=== PATIENT | male | born 1995 | race Caucasian/White ===

== ENCOUNTER 2019-10-12 11:24 | Inpatient (IN) | payer SELFPAY ==
[2019-10-12 11:26] VITALS: BP 158/98; PULSE 111; RESP 18; TEMP 37.1; O2SAT 97; BMI 30.8
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
[2019-10-12] MEDS: LORazepam 1 mg Tablet PO (11:36)
[2019-10-12 12:04] VITALS: BP 158/98; PULSE 100; RESP 16; TEMP 36.8
[2019-10-12 12:06] VITALS: BP 157/111; PULSE 103; RESP 18; TEMP 37.2; O2SAT 98
[2019-10-12] MEDS: hyDROXYzine 25 mg Capsule 50 MG PO ×2 (12:18→21:27)
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
[2019-10-12] MEDS: OLANZapine 5 mg ODT PO (21:33)
[2019-10-12 22:00] VITALS: BP 180/78; PULSE 97; RESP 18; TEMP 36.8; O2SAT 96
--- NOTE | 2019-10-12 23:47 | PC.NURSE ---
pt given PRN ttrazodone and vistaril at HS per request.
[2019-10-13 06:00] VITALS: BP 127/82; PULSE 68; RESP 20; TEMP 37; O2SAT 97
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
--- NOTE | 2019-10-13 09:36 | P.DS_ITS ---
Diagnoses at Discharge Discharge Diagnosis (1) Suicidal ideation: Status: Acute Problem details: Now that the patient has slept it off he has no suicidal or homicidal ideation, plan or intent (2) Adjustment disorder with anxious mood in remission: Status: Acute Problem details: The patient's crisis is receding rapidly. Reason for Visit Reason for Visit: SI/DEPRESSION Hospital Course Hospital Course As soon as the patient slept it off he morphed into a perfectly normal 24-year-old young adult. He has no suicidal or homicidal ideation, plan or intent. He is of normal mental status. Discharge Summary The patient sobered up rapidly and I have consulted with our senior program planner to get him a ride back to [place], whence he came. He is to be referred for counseling resources, as he is not clinically depressed. Involuntary Hold Information 96 Hour Hold: 96 Hour Involuntary Admission: No Mental Status Exam MSE Comments: This is a 24-year-old male who looks his age. He is clean, neat and of good body habitus. Mood is calm although a bit sheepish in that he feels stupid now that he has slept it off. Thought processes are integrated and free of any racing, blocking or looseness of association. There is no evidence of psychosis, such as but not limited to hallucinations, delusions and ideas of reference. Speech is of normal rate and volume, without dysarthria, aprosody or pressure. Cognitive functions are completely intact and his insight and judgment are robust. He denies suicidal or homicidal ideation, plan or intent. Physical Exam Narrative: EXAM NARRATIVE: Const: COMMON NORMALS: no acute distress, patient oriented x3, no limitations, healthy appearing and well nourished GENERAL APPEARANCE: cooperative and well developed HENMT: COMMON NORMALS: normocephalic, atraumatic, external ears normal, EAC's normal and Normal external nose present HEAD & SCALP: normal to inspection, normocephalic and atraumatic FACE & SINUS: normal facial exam and face symmetric NOSE: Normal external nose present and Normal nares present EXT ERNAL EAR: Yes external ears normal EXTERNAL AUDITORY CANAL: EAC's normal MOUTH: Normal oral and palatal mucosa present, lip normal and tongue normal Eye: COMMON NORMALS: Equal, round and reactive pupils present and conjunctivae normal GENERAL EYE: appearance normal, both eyes and all related structures ALIGNMENT: Yes alignment normal PERIORBITAL: periorbital findings normal EYELID: eyelids normal CONJUNCTIVA: Yes conjunctivae normal SCLERA: sclerae normal PUPIL: Yes Equal, round and reactive pupils present Neck/C-Spine: COMMON NORMALS: full ROM, no lymphadenopathy, supple, no meni ngeal signs and no JVD GENERAL: Yes normal visual inspection and Yes trachea midline Chest: COMMONS NORMALS: normal inspection of the chest and normal palpation of entire chest wall Resp: COMMON NORMALS: normal respiratory effort, No retractions and No use of accessory muscles EFFORT & INSPECTION: Yes able to speak in complete sentences and Yes symmetric chest movement AUSCULTATION: no crackles, no rales, no rhonchi and no wheezes Cardio: COMMON NORMALS: no JVD, regular rate, regular rhythm, S1 normal heart sound present and S2 normal heart sound present RATE: regular rate RHYTHM: regular rhythm HEART SOUNDS: S1 normal heart sound present, S2 normal heart sound present, no click, no gallops, no murmurs, no rubs and abnormal split S2 GI: COMMON NORMALS: Soft to palpation and No hepatosplenomegaly present PALPATION: Yes Soft to palpation, No Tenderness to palpation present (GI), No Guarding due to palpation present (GI), No Rigid due to palpation, Yes No hepatosplenomegaly present, No Hernia present, No Palpable mass present and No Pulsatile mass present : COMMON NORMALS: Yes no CVA tenderness BLADDER/KIDNEY EXAM: Yes no CVA tenderness EXTERNAL FEMALE EXAM: No Hernia present Back/Pelvis: COMMON NORMALS: no CVA tenderness, thoracic and lumbar spine normal to inspection, no thoracic nor lumbar tenderness and thoraco-lumbar ROM normal Extremity: COMMON NORMALS: normal to inspection, full ROM, capillary refill normal, no joint enlargement, no clubbing, cyanosis or edema and no calf tenderness Neuro: COMMON NORMALS: patient oriented x3, CN's II-XII intact bilaterally, moves all extremities, no focal motor deficits and no sensory deficits noted MENINGEAL SIGNS: Yes no meningeal signs SPEECH: speech normal Psych: See mental status. Skin: COMMON NORMALS: no rashes or lesions noted, turgor normal, no jaundice, no petechiae and no mottling GENERAL SKIN EXAM: no rashes or lesions noted and turgor normal Discharge Data Data Completed and Pending: Pending at discharge Category Date Time Status Drug Screen, Urin e Stat Lab 10/12/19 11:37 Ordered Vitals: Last Vital Signs Temp 98.6 F 10/13/19 06:00 Pulse 68 10/13/19 06:00 Resp 20 H 10/13/19 06:00 BP 127/82 10/13/19 06:00 Pulse Ox 97 10/13/19 06:00 Discharge Plan Discharge Patient Disposition: Home Condition: Stable Prescriptions: Discontinued ibuprofen 200 mg Tablet 800 mg PO PRN RF: 0 Discharge Orders: Discharge Order (Routine); Ordered 10/13/19 Ordered By: Jacinto Casey Discharge Diet: Usual diet Discharge Activity: Resume usual activity Discharge Attestations NPU Time Spent in Discharge Care*: greater than 30 min Specific Discharge Activities: Specific discharge activities: educating patient, discussing with returned case inspector/social workers/dc planners, documenting/other paperwork and evaluating patient/reviewing data Status at Discharge: Cognitive status at discharge: cognitively intact , Behavioral status at discharge: cooperative , Functional status at discharge: independent ambulation Overall status at discharge: patient is back to baseline Coding Level of Care Code Acute Social Work Instructor for Candy Fwd Diagnoses Suicidal ideation R45.851 Adjustment disorder with anxious mood in remission F43.22
[2019-10-13 10:18] VITALS: BP 127/82; PULSE 68; RESP 20; TEMP 37; O2SAT 97
== END 2019-10-13 12:14 | disposition home or self-care (01) | DRG 882 ==
LOC: ER 11:41 → NP 11:52
DX: F43.22 Adjustment disorder with anxiety (principal); R45.851 Suicidal ideations
CPT/HCPCS: 12345; 99284